=== PATIENT | female | born 1950 | race Caucasian/White ===

== ENCOUNTER 2017-09-01 23:06 | Observation (INO) | payer OTHER, MEDICARE ==
[~2017-09-01] VITALS: Ht 162.6 cm; Wt 61.0 kg
[2017-09-01 23:07] VITALS: BP 156/74; PULSE 90; RESP 16; TEMP 98.2; O2SAT 96
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
[2017-09-02 02:44] LABS: AUTOMATED NEUTROPHIL # 6.8 TH/MM3 (1.8-7.7); BASOPHIL # 0.1 TH/MM3 (0-0.2); BASOPHIL % 0.7 % (0.0-2.0); EOSINOPHIL # 0.3 TH/MM3 (0-0.4); EOSINOPHIL % 3.6 % (0.0-4.0); HEMATOCRIT 38.1 % (35.0-46.0); HEMO FLAGS DIFF FINAL; LYMPH % 10.7 % (9.0-44.0); MEAN CORPUSCULAR HEMOGLOBIN 32.2 PG (27.0-34.0); MEAN CORPUSCULAR HGB CONC 33.9 % (32.0-36.0); MONO % 9.7 % (0.0-8.0); NEUT % 75.3 % (16.0-70.0); PLATELET COUNT 248 TH/MM3 (150-450); RED BLOOD COUNT 4.01 MIL/MM3 (4.00-5.30); RED CELL DISTRIBUTION WIDTH 13.2 % (11.6-17.2); WHITE BLOOD COUNT 9.1 TH/MM3 (4.0-11.0)
[2017-09-02 02:54] VITALS: RESP 16
[2017-09-02 02:58] LABS: APTT (PATIENT) 25.4 SEC (24.3-30.1); INTERNATIONAL NORMALIZED RATIO 0.9 RATIO; PROTHROMBIN TIME - PATIENT 9.9 SEC (9.8-11.6)
[2017-09-02 03:00] LABS: ANION GAP 6 MEQ/L (5-15); BICARBONATE 25.2 MEQ/L (21.0-32.0); BLOOD UREA NITROGEN 9 MG/DL (7-18); CHLORIDE 102 MEQ/L (98-107); GLOMERULAR FILTRATION RATE 64 ML/MIN (>89); POTASSIUM 4.2 MEQ/L (3.5-5.1); SODIUM (NA) 133 MEQ/L (136-145)
[2017-09-02 03:03] LABS: CREATINE KINASE 206 U/L (26-192)
[2017-09-02 03:15] LABS: CKMB 4.8 NG/ML (0.5-3.6)
[2017-09-02] MEDS ORDERED: ONDANSETRON HCL 4 MG/2 ML VIAL IV PUSH ONE (03:30)
[2017-09-02] MEDS ORDERED: HYDROmorphone HCL PF 1 MG/ML VIAL IV PUSH ONE (03:30)
[2017-09-02 03:38] VITALS: BP 121/60; PULSE 82; RESP 16; O2SAT 98
[2017-09-02] MEDS ORDERED: IOHEXOL 350 MG/ML 10 ML VIAL (for RAD DIAG) IVCONTRAST ONE (03:56)
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
[2017-09-02] MEDS ORDERED: SODIUM CHLORIDE 0.9% FLUSH 10 ML FLUSH IVF PRN (05:30)
[2017-09-02 08:00] VITALS: BP 98/48; PULSE 72; RESP 18; TEMP 97.6; O2SAT 99
[2017-09-02] MEDS ORDERED: ENALAPRILAT 1.25 MG/ML VIAL IV PUSH PRN (08:30)
[2017-09-02] MEDS ORDERED: SODIUM CHLORIDE 0.9% FLUSH 10 ML FLUSH IV FLUSH PRN (08:30)
[2017-09-02] MEDS ORDERED: ONDANSETRON HCL 4 MG/2 ML VIAL IV PUSH PRN (08:30)
[2017-09-02] MEDS ORDERED: oxyCODONE/ACETAMINOPHEN 5 MG/325 MG TAB PO PRN (08:30)
[2017-09-02] MEDS ORDERED: MORPHINE SULFATE 4 MG/ML INJ IV PUSH PRN (08:30)
[2017-09-02] MEDS ORDERED: FAMOTIDINE 20 MG TAB PO SCH (09:00)
[2017-09-02] MEDS ORDERED: SODIUM CHLORIDE 0.9% FLUSH 10 ML FLUSH IV FLUSH SCH (09:00)
[2017-09-02] MEDS ORDERED: DOCUSATE SODIUM 50 MG/SENNA 8.6 MG TAB PO SCH (09:00)
[2017-09-02] MEDS ORDERED: MAGN400S PO (11:11)
[2017-09-02] MEDS ORDERED: SENN1TAB PO (11:11)
[2017-09-02] MEDS ORDERED: DILA2TAB2 PO (11:11)
[2017-09-02] MEDS ORDERED: HYDROmorphone HCL 2 MG TAB PO PRN (11:15)
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
[2017-09-02] MEDS ORDERED: PILL SPLITTER OTHER PRN (11:45)
[2017-09-02 12:00] VITALS: BP 94/47; PULSE 68; RESP 18; TEMP 96.9; O2SAT 99
[2017-09-02 14:17] LABS: CREATINE KINASE 194 U/L (26-192)
--- NOTE | 2017-09-02 15:57 | EKG ---
Date Performed: 09/02/2017 Time Performed: 13:30:28 PTAGE: 66 years EKG: Sinus rhythm LEFT BUNDLE BRANCH BLOCK ABNORMAL ECG PREVIOUS TRACING : 09/02/2017 02.39 Compared to prior tracing no significant change DOCTOR: Abdulaziz Thompson Interpretating Date/Time 09/02/2017 15:57:24
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
--- NOTE | 2017-09-02 19:24 | EKG ---
Date Performed: 09/02/2017 Time Performed: 02:39:52 PTAGE: 66 years EKG: Sinus rhythm INTRAVENTRICULAR CONDUCTION DELAY ABNORMAL ECG NO PREVIOUS TRACING DOCTOR: Abdulaziz Thompson Interpretating Date/Time 09/02/2017 19:21:36
[2017-09-02] MEDS ORDERED: MAGNESIUM HYDROXIDE SUSP 30 ML CUP PO SCH (21:00)
== END 2017-09-02 15:29 | disposition home or self-care (01) ==
LOC: NEPE 23:06 → NEDA 09-02 05:17 → INTOOBSV 09-02 05:17 → N06B 09-02 06:35
PROVIDERS: ADMIT Surgery; ATTEND Surgery
DX: S22.22XA Fracture of body of sternum, initial encounter for closed fracture (principal); V43.62XA Car passenger injured in collision with other type car in traffic accident, initial encounter; Y92.410 Unspecified street and highway as the place of occurrence of the external cause; I45.9 Conduction disorder, unspecified; R06.02 Shortness of breath; M54.2 Cervicalgia; R05 Cough; J47.9 Bronchiectasis, uncomplicated; E03.9 Hypothyroidism, unspecified
CPT/HCPCS: 71260; 72125; 80048; 82550; 82552; 83880; 84484; 85025; 85610; 85730; 93005; 94150; 94667; 96374; 96375; G0378; J1170; J2270; J2405; Q9967

== ENCOUNTER 2017-09-12 11:15 | Emergency (ER) | payer OTHER, MEDICARE ==
[~2017-09-12] VITALS: Ht 162.6 cm; Wt 62.0 kg
[~2017-09-12 11:15] MED LIST: DILA2TAB2 PO; MAGN400S PO; SENN1TAB PO
[2017-09-12 11:16] VITALS: BP 147/68; PULSE 83; RESP 18; TEMP 98.1; O2SAT 99
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
[2017-09-12] MEDS ORDERED: KETOROLAC TROMETHAMINE 60 MG/2 ML (IM) VIAL IM ONE (11:45)
[2017-09-12] MEDS ORDERED: ORPHENADRINE INJ 60 MG/2 ML AMP IM ONE (11:45)
[2017-09-12] MEDS ORDERED: LEVO50TA4 PO (12:51)
[2017-09-12 13:21] LABS: AUTOMATED NEUTROPHIL # 3.4 TH/MM3 (1.8-7.7); BASOPHIL % 0.3 % (0.0-2.0); EOSINOPHIL # 0.3 TH/MM3 (0-0.4); EOSINOPHIL % 6.1 % (0.0-4.0); HEMATOCRIT 40.3 % (35.0-46.0); HEMO FLAGS DIFF FINAL; LYMPH % 19.2 % (9.0-44.0); MEAN CORPUSCULAR HEMOGLOBIN 31.8 PG (27.0-34.0); MEAN CORPUSCULAR HGB CONC 33.2 % (32.0-36.0); MONO % 10.9 % (0.0-8.0); NEUT % 63.5 % (16.0-70.0); PLATELET COUNT 344 TH/MM3 (150-450); RED CELL DISTRIBUTION WIDTH 13.3 % (11.6-17.2); WHITE BLOOD COUNT 5.3 TH/MM3 (4.0-11.0)
[2017-09-12 14:11] LABS: BICARBONATE 24.7 MEQ/L (21.0-32.0); POTASSIUM 4.2 MEQ/L (3.5-5.1)
--- NOTE | 2017-09-12 14:51 | EKG ---
Date Performed: 09/12/2017 Time Performed: 12:29:06 PTAGE: 66 years EKG: Sinus rhythm LEFT BUNDLE BRANCH BLOCK ABNORMAL ECG PREVIOUS TRACING : 09/02/2017 13.30 Compared to previous tracing, nonspecific ST elevation in t he inferior leads and leads V4, V5 is no longer evident. DOCTOR: Julius Yan Interpretating Date/Time 09/12/2017 14:51:18
[2017-09-12] MEDS ORDERED: IOHEXOL 350 MG/ML 10 ML VIAL (for RAD DIAG) IVCONTRAST ONE (15:12)
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
[2017-09-12 15:43] VITALS: BP 129/65; PULSE 74; RESP 18; O2SAT 99
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
[2017-09-12] MEDS ORDERED: HYDR-3533 PO (15:52)
[2017-09-12] MEDS ORDERED: ROBA500T PO (15:59)
== END 2017-09-12 16:06 | disposition home or self-care (01) ==
LOC: NEPK 11:15 → NEPD 16:06
DX: M25.512 Pain in left shoulder (principal); S16.1XXA Strain of muscle, fascia and tendon at neck level, initial encounter; R07.89 Other chest pain; E03.9 Hypothyroidism, unspecified; S22.20XD Unspecified fracture of sternum, subsequent encounter for fracture with routine healing; R91.1 Solitary pulmonary nodule; V89.2XXA Person injured in unspecified motor-vehicle accident, traffic, initial encounter
CPT/HCPCS: 71260; 72125; 80048; 84484; 85025; 93005; 96372; 99285; J1885; J2360; Q9967